=== PATIENT | male | born 1965 | race Caucasian/White ===

== ENCOUNTER → 2019-07-28 | Day surgery (SDC) | payer BC ==
[~2019-07-28] VITALS: Ht 190.5 cm; Wt 106.6 kg
[2019-07-28] VITALS (9 sets, daily range): BP systolic 109–137; BP diastolic 71–94
[~2019-07-28] MED LIST: AVODART0.5 MG ORAL; COREG6.25 MG ORAL; FLOMAX0.4 MG ORAL; LOSARTAN POTASS50 MG ORAL; LR 1000ml 1,000 ML IVLG SCH; LR 1000ml ONE; Lidocaine 1% MPF 10mg/ml 5ml ONE; Propofol 200mg/20ml IV ONE
--- NOTE | 2019-07-28 09:19 | Pre-Procedure Note/Attestation ---
Pre-Procedure Note/Attestation Complete Prior to Procedure Planned Procedure: not applicable Procedure Narrative: colonoscopy Indications for Procedure Pre-Operative Diagnosis: screening Attestation I attest that I discussed the nature of the procedure; its benefits; risks and complications; and alternatives (and the risks and benefits of such alternatives ), prior to the procedure, with the patient (or the patient's legal guest relations representative). I attest that, if there was a reasonable possibility of needing a blood transfusion, the patient (or the patient's legal guest relations representative) was given the [facility] Health Services standardized written summary, pursuant to the Raul [place] Blood Safety Act ([place] Health and Safety Code # 1645, as amended). I attest that I re-evaluated the patient just prior to the surgery and that there has been no change in the patient's H&P, except as documented below: Charly Dinero MD Jul 28, 2019 09:19
--- NOTE | 2019-07-28 09:20 | Short Stay Surgery H&P ---
History of Present Illness History of Present Illness Chief Complaint screening colon HPI Russ Walton is a 53 year old male who was admitted on for Colon Screening Patient History Allergies: Coded Allergies: No Known Allergies (Unverified , 07/28/19) PAST MEDICAL HISTORY: (1) HTN (hypertension) (2) BPH (benign prostatic hyperplasia) Medication History Scheduled Carvedilol (Coreg), 6.25 MG ORAL DAILY, (Reported) Dutasteride (Avodart), 0.5 MG ORAL DAILY, (Reported) Losartan Potassium* (Losartan Potassium*), 100 MG ORAL DAILY, (Reported) Tamsulosin HCl (Flomax), 0.4 MG ORAL DAILY, (Reported) Review of Systems Cardiovascular: Reports: no symptoms Respiratory: Reports: no symptoms Skeletal: Reports: no symptoms Gastrointestinal: Reports: no symptoms Genitourinary: Reports: no symptoms Neurologic: Reports: no symptoms Endocrine: Reports: no symptoms Hematologic: Reports: no symptoms Physical Exam Vital Signs Last Vital Signs Date Time Temp Pulse Resp B/P (MAP) Pulse Ox O2 Delivery O2 Flow Rate FiO2 07/28/19 07:48 Room Air 07/28/19 07:36 97.5 72 18 137/75 95 Skin: normal HENT: normal Heart: normal Lungs: normal Abdomen: normal Extremities: normal Plan Plan of Care colonoscopy Attestation Are the patient's medical conditions optimized for surgery? Attestation Response: yes Charly Dinero MD Jul 28, 2019 09:20
--- NOTE | 2019-07-28 09:40 | Endoscopy Procedure Note ---
Endoscopy Procedure Note General Indication for Procedure: screening Procedures Performed: colonoscopy Operative Findings/Diagnosis: hemorrhoids Specimen: none Pt Tolerated Procedure Well: Yes Estimated Blood Loss: none Anesthesia Anesthesiologist: tawnya Anesthesia: MAC Inserted Devices Implant(s) used?: No Quality Quality of Bowel Preparation: Good Did scope reach the cecum?: Yes Was there any complications?: No GI Core Measures 50 yrs or older w/o bx or poly: No 10yrs. F/U recommended: Yes If not recommended, why?: Above average risk 18 years or older w/prev. colo: No Charly Dinero MD Jul 28, 2019 09:40
--- NOTE | 2019-07-28 09:52 | Immediate Post-Op Evaluation ---
Immediate Post-Op Evalulation Immediate Post-Op Evalulation Procedure: Colonoscopy Date of Evaluation: Jul 28, 2019 Time of Evaluation: 09:52 IV Fluids: 600 Blood Pressure Systolic: 113 Blood Pressure Diastolic: 71 Pulse Rate: 70 Respiratory Rate: 14 O2 Sat by Pulse Oximetry: 98 Temperature (Fahrenheit): 97.5 Pain Score (1-10): 0 Nausea: No Vomiting: No Patient Status: awake, reacts, patent Hydration Status: adequate Drug: declined Lori Willis CRNA Jul 28, 2019 09:52
--- NOTE | 2019-07-28 09:53 | Anethesia Preoperative Eval ---
Anesthesia Pre-op PMH/ROS General Date of Evaluation: Jul 28, 2019 Time of Evaluation: 09:00 Anesthesiologist: arthur ASA Score: ASA 2 Mallampati Score Class I : Soft palate, uvula, fauces, pillars visible Class II: Soft palate, uvula, fauces visible Class III: Soft palate, base of uvula visible Class IV: Only hard plate visible Mallampati Classification: Class II Surgeon: shellie Diagnosis: screening Surgical Procedure: Colonoscopy Anesthesia History: none Family History: no anesthesia problems Allergies: Coded Allergies: No Known Allergies (Unverified , 07/28/19) Medications: see eMAR Patient NPO?: Yes NPO Date: Jul 28, 2019 NPO Time: 00:01 Past Medical History Cardiovascular: Reports: HTN Pulmonary: Denies: asthma, COPD, KATIE, other Gastrointestinal/Genitourinary: Denies: GERD, CRI, ESRD, other Neurologic/Psychiatric: Denies: dementia, CVA, depression/anxiety, TIA, other Endocrine: Denies: DM, hypothyroidism, steroids, other HEENT: Denies: cataract (L), cataract (R), glaucoma, [place] (L), [place] (R), other Hematology/Immune: Denies: anemia, DVT, bleeding disorder, other PSxH Narrative: denies Anesthesia Pre-op Phys. Exam Physician Exam Last Vital Signs Date Time Temp Pulse Resp B/P (MAP) Pulse Ox O2 Delivery O2 Flow Rate FiO2 07/28/19 07:48 Room Air 07/28/19 07:36 97.5 72 18 137/75 95 Constitutional: NAD Neurologic: CN 2-12 intact Cardiovascular: RRR Respiratory: CTA Gastrointestinal: S/NT/ND Airway Exam Mallampati Classification 2 Mallampati Score: Class II MO: full ROM: full Dentures: no upper, no lower Anesthesia Pre-op A/P Studies Pre-op Studies: EKG - SR Risk Assessment & Plan Plan: mac Pre-Antibiotics Drug: Lori Muniz CRNA Jul 28, 2019 09:53
--- NOTE | 2019-07-28 10:47 | 48 Hour Post Anesthesia Eval ---
Post Anesthesia Evaluation Procedure: Colonoscopy Date of Evaluation: Jul 28, 2019 Time of Evaluation: 10:47 Blood Pressure Systolic: 132 0: 94 Pulse Rate: 57 Respiratory Rate: 14 O2 Sat by Pulse Oximetry: 98 Airway: patent Nausea: No Vomiting: No Hydration Status: adequate Cardiopulmonary Status: stable Mental Status/LOC: patient returned to baseline Post-Anesthesia Complications: none Follow-up care needed: N/A Lori Willis CRNA Jul 28, 2019 10:47
--- NOTE | 2019-07-28 14:45 | Procedure Note ---
DATE OF PROCEDURE: 07/28/2019 SURGEON: Charly Dinero M.D. PROCEDURE: Colonoscopy. ANESTHESIA: Per RADIOCHEMICAL TECHNICIAN, Lori Tarrillion. INSTRUMENT: Olympus adult flexible colonoscope. INDICATION: Colonoscopy. REASON FOR PROCEDURE: The procedure, risks, benefits, and possible consequences, including hemorrhage, aspiration, perforation and infection, and alternative treatments, were explained to the patient/legal guardian by Dr. Charly Dinero and the patient/legal guardian understood and accepted these risks. PROCEDURE IN DETAIL: After informed consent was obtained and the patient was adequately sedated, first rectal exam was performed, which was normal. Then, the scope was advanced from the rectum into the cecum documented by appendix orifice, ileocecal valve, and right upper quadrant palpation. Quality of prep was very good. The patient had normal colonoscopy examination except for internal hemorrhoids seen on retroflexion. No obvious mass, polyp, diverticulosis, or any pathology was seen. SUMMARY OF FINDINGS: Normal colonoscopy examination. Some internal hemorrhoids. RECOMMENDATIONS: Treat for hemorrhoids if become symptomatic. Otherwise repeat colonoscopy in 10 years. Charly Dinero M.D. DR: KAYCEE JOB#: [id number] CC:
--- NOTE | 2019-07-28 14:56 | Cardiology Report ---
APPROVED REPORT EKG Measurement Heart [id number] Normal sinus rhythm Normal ECG
== END | disposition home or self-care (01) ==
LOC: GAS 07:08
DX: Z12.11 Encounter for screening for malignant neoplasm of colon (principal); K64.8 Other hemorrhoids
CPT/HCPCS: 93005; G0121; J2704; J7120

== ENCOUNTER 2020-08-30 07:00 | Day surgery (SDC) | payer BC ==
[~2020-08-30] VITALS: Ht 190.5 cm; Wt 113.4 kg
[2020-08-30] VITALS (7 sets, daily range): BP systolic 133–157; BP diastolic 73–93
[~2020-08-30 07:00] MED LIST changes: -LR 1000ml 1,000 ML IVLG SCH; -LR 1000ml ONE; -Lidocaine 1% MPF 10mg/ml 5ml ONE; -Propofol 200mg/20ml IV ONE
[2020-08-30] MEDS ORDERED: LR 1000ml 1,000 ML IVLG SCH ×2 (08:00→09:00)
--- NOTE | 2020-08-30 08:27 | Endoscopy Procedure Note ---
Endoscopy Procedure Note General Indication for Procedure: rectal bleed Procedures Performed: flexible sigmoidoscopy Operative Findings/Diagnosis: hemorrhoids Specimen: none Pt Tolerated Procedure Well: Yes Estimated Blood Loss: none Anesthesia Anesthesiologist: pam Anesthesia: MAC Inserted Devices Implant(s) used?: No GI Core Measures 50 yrs or older w/o bx or poly: Not Applicable 10yrs. F/U recommended: Not Applicable Charly Dinero MD Aug 30, 2020 08:27
--- NOTE | 2020-08-30 08:28 | Short Stay Surgery H&P ---
History of Present Illness History of Present Illness Chief Complaint rectal bleed HPI Russ Walton is a 54 year old male who was admitted on for Hx Of Colon Polyps,Hemorrhoid Patient History Allergies: Coded Allergies: No Known Allergies (Unverified , 08/23/20) PAST MEDICAL HISTORY: (1) BPH (benign prostatic hyperplasia) (2) HTN (hypertension) Medication History Scheduled Carvedilol (Coreg), 6.25 MG ORAL DAILY, (Reported) Dutasteride (Avodart), 0.5 MG ORAL DAILY, (Reported) Losartan Potassium* (Losartan Potassium*), 100 MG ORAL DAILY, (Reported) Tamsulosin HCl (Flomax), 0.4 MG ORAL DAILY, (Reported) Review of Systems Cardiovascular: Reports: no symptoms Respiratory: Reports: no symptoms Skeletal: Reports: no symptoms Gastrointestinal: Reports: no symptoms Genitourinary: Reports: no symptoms Neurologic: Reports: no symptoms Endocrine: Reports: no symptoms Hematologic: Reports: no symptoms Physical Exam Vital Signs Last Vital Signs Date Time Temp Pulse Resp B/P (MAP) Pulse Ox O2 Delivery O2 Flow Rate FiO2 08/30/20 07:43 Room Air 08/30/20 07:33 97.5 80 18 133/73 97 Skin: normal HENT: normal Heart: normal Lungs: normal Abdomen: normal Extremities: normal Plan Plan of Care flex sig Attestation Are the patient's medical conditions optimized for surgery? Attestation Response: yes Charly Dinero MD Aug 30, 2020 08:28
--- NOTE | 2020-08-30 08:58 | Anethesia Preoperative Eval ---
Anesthesia Pre-op PMH/ROS General Date of Evaluation: Aug 30, 2020 Time of Evaluation: 08:38 Anesthesiologist: sayra ASA Score: ASA 3 Mallampati Score Class I : Soft palate, uvula, fauces, pillars visible Class II: Soft palate, uvula, fauces visible Class III: Soft palate, base of uvula visible Class IV: Only hard plate visible Mallampati Classification: Class II Surgeon: katerina Diagnosis: hx/o colon polyps, hemorrhoids Surgical Procedure: flexible sigmoidoscopy w/ banding Anesthesia History: none Social History: smoking - nonsmoker Family History: no anesthesia problems Allergies: Coded Allergies: No Known Allergies (Unverified , 08/23/20) Medications: see eMAR Patient NPO?: Yes Past Medical History Cardiovascular: Reports: HTN Gastrointestinal/Genitourinary: Reports: other - colon polyps, hemorrhoids, bph Anesthesia Pre-op Phys. Exam Physician Exam Last Vital Signs Date Time Temp Pulse Resp B/P (MAP) Pulse Ox O2 Delivery O2 Flow Rate FiO2 08/30/20 07:43 Room Air 08/30/20 07:33 97.5 80 18 133/73 97 Constitutional: NAD Neurologic: CN 2-12 intact Cardiovascular: RRR Respiratory: CTA Gastrointestinal: S/NT/ND Airway Exam Mallampati Score: Class II MO: limited Neck: flexible TMD: 2fb ROM: limited Anesthesia Pre-op A/P Risk Assessment & Plan Assessment: asa3 Plan: mac Status Change Before Surgery: No Pre-Antibiotics Drug: Sonali Beauchamp MD Aug 30, 2020 08:57
[2020-08-30] MEDS ORDERED: Atropine Inj 1mg/10ml Syr IVP PRN (09:00)
[2020-08-30] MEDS ORDERED: Midazolam 2mg/2ml Inj IVP PRN (09:00)
[2020-08-30] MEDS ORDERED: fentaNYL 100 mcg/2 mL IV PRN (09:00)
[2020-08-30] MEDS ORDERED: DiphenhydrAMINE 50mg/ml Inj IVP PRN (09:00)
--- NOTE | 2020-08-30 09:06 | Endoscopy Procedure Note ---
Endoscopy Procedure Note General Indication for Procedure: rectal bleed Procedures Performed: flexible sigmoidoscopy Operative Findings/Diagnosis: same Specimen: none Pt Tolerated Procedure Well: Yes Estimated Blood Loss: none Anesthesia Anesthesiologist: pam Anesthesia: MAC Inserted Devices Implant(s) used?: No GI Core Measures 50 yrs or older w/o bx or poly: Not Applicable 10yrs. F/U recommended: Not Applicable Charly Dinero MD Aug 30, 2020 09:06
--- NOTE | 2020-08-30 09:27 | Immediate Post-Op Evaluation ---
Immediate Post-Op Evalulation Immediate Post-Op Evalulation Procedure: flexible sigmoidoscopy w/ banding Date of Evaluation: Aug 30, 2020 Time of Evaluation: 09:24 IV Fluids: 850ml lr Blood Products: none Estimated Blood Loss: negligible Blood Pressure Systolic: 148 Blood Pressure Diastolic: 91 Pulse Rate: 69 Respiratory Rate: 18 O2 Sat by Pulse Oximetry: 100 Temperature (Fahrenheit): 97.2 Pain Score (1-10): 0 Nausea: No Vomiting: No Complications none Patient Status: awake, reacts, patent Hydration Status: adequate Drug: Sonali Beauchamp MD Aug 30, 2020 09:27
--- NOTE | 2020-08-30 09:28 | 48 Hour Post Anesthesia Eval ---
Post Anesthesia Evaluation Procedure: flexible sigmoidoscopy w/ banding Date of Evaluation: Aug 30, 2020 Time of Evaluation: 09:28 Blood Pressure Systolic: 144 0: 88 Pulse Rate: 67 Respiratory Rate: 18 Temperature (Fahrenheit): 97.2 O2 Sat by Pulse Oximetry: 100 Airway: patent Nausea: No Vomiting: No Pain Intensity: 0 Hydration Status: adequate Cardiopulmonary Status: stable Mental Status/LOC: patient returned to baseline Post-Anesthesia Complications: none Follow-up care needed: N/A Sonali Garcia MD Aug 30, 2020 09:28
--- NOTE | 2020-08-30 15:29 | Procedure Note ---
DATE OF PROCEDURE: 08/30/2020 SURGEON: Charly Dinero MD. PROCEDURE: Flexible endoscopy with banding of the hemorrhoids. ANESTHESIA: Per Dr. Stack. INSTRUMENT: Olympus adult flexible upper endoscope. INDICATION: Rectal bleeding. REASON FOR PROCEDURE: The procedure, risks, benefits, and possible consequences, including hemorrhage, aspiration, perforation and infection, and alternative treatments, were explained to the patient/legal guardian by Dr. Charly Dinero and the patient/legal guardian understood and accepted these risks. PROCEDURE IN DETAIL: After informed consent was obtained and the patient was adequately sedated, Olympus upper endoscope was performed show positive for large external and internal hemorrhoids. External hemorrhoids did not look any thrombosed or anything like that. Then, the scope was advanced from rectum into the sigmoid colon. Quality of prep was fair. The patient had large internal hemorrhoids, at least I would say four or five of them. At this time, the upper endoscope was retrieved and banding device was placed. The scope was reintroduced into the rectum and total of three bands were placed on the hemorrhoids. The patient tolerated the procedure very well without any complications. SUMMARY OF FINDINGS: 1. Internal and external hemorrhoids. 2. Status post banding x3 of internal hemorrhoids. RECOMMENDATIONS: 1. Discharge for today and follow in the office. 2. Pain control. 3. Continue on his suppositories, stool softeners. 4. We will follow. Charly Dinero M.D. DR: ADAM JOB#: [id number] CC:
== END 2020-08-30 10:15 | disposition home or self-care (01) ==
LOC: GAS 07:00
DX: K64.8 Other hemorrhoids (principal); K64.4 Residual hemorrhoidal skin tags; I10 Essential (primary) hypertension; Z79.899 Other long term (current) drug therapy; Z86.010 Personal history of colon polyps
CPT/HCPCS: 94003; 94150

== ENCOUNTER → 2020-09-29 | Day surgery (SDC) | payer BC ==
[~2020-09-29] VITALS: Ht 190.5 cm; Wt 110.7 kg
[2020-09-29] VITALS (8 sets, daily range): BP systolic 118–142; BP diastolic 68–87
[~2020-09-29] MED LIST changes: +DiphenhydrAMINE 50mg/ml Inj IVP PRN; +FISH OIL CAP1000 MG ORAL; +Ketorolac 30mg Inj IV PRN; +LR 1000ml 1,000 ML IVLG SCH; +Meperidine 25mg/1ml Inj (FOR RIGORS ONLY) IV PRN; +Midazolam 2mg/2ml Inj ONE; +fentaNYL 100 mcg/2 mL IV ONE
--- NOTE | 2020-09-29 10:47 | Anethesia Preoperative Eval ---
Anesthesia Pre-op PMH/ROS General Date of Evaluation: Sep 29, 2020 Time of Evaluation: 10:44 Anesthesiologist: Kai ASA Score: ASA 2 Mallampati Score Class I : Soft palate, uvula, fauces, pillars visible Class II: Soft palate, uvula, fauces visible Class III: Soft palate, base of uvula visible Class IV: Only hard plate visible Mallampati Classification: Class II Surgeon: Bar Diagnosis: Hemorrhoids Surgical Procedure: Colonoscopy with banding Anesthesia History: none Family History: no anesthesia problems Allergies: Coded Allergies: No Known Allergies (Unverified , 08/23/20) Medications: see eMAR Patient NPO?: Yes Past Medical History Cardiovascular: Reports: HTN - stable on meds; Denies: CAD, [place], valve dz, arrhythmia, other Pulmonary: Denies: asthma, COPD, KATIE, other Gastrointestinal/Genitourinary: Reports: GERD, other - recurrent hemorrhoids; Denies: CRI, ESRD Neurologic/Psychiatric: Denies: dementia, CVA, depression/anxiety, TIA, other Endocrine: Denies: DM, hypothyroidism, steroids, other HEENT: Denies: cataract (L), cataract (R), glaucoma, [place] (L), [place] (R), other Hematology/Immune: Denies: anemia, DVT, bleeding disorder, other Musculoskeletal/Integumentary: Denies: OA, RA, DJD, DDD, edema, other Other: other - overweight PMH Narrative: as above PSxH Narrative: see H&P Anesthesia Pre-op Phys. Exam Physician Exam Last Vital Signs Date Time Temp Pulse Resp B/P (MAP) Pulse Ox O2 Delivery O2 Flow Rate FiO2 09/29/20 10:14 98.0 80 18 124/68 96 Room Air Constitutional: NAD Neurologic: CN 2-12 intact Cardiovascular: RRR, no M/R/G Respiratory: CTA Airway Exam Mallampati Score: Class II MO: full Neck: flexible ROM: full Teeth: intact Dentures: no upper, no lower Anesthesia Pre-op A/P Risk Assessment & Plan Assessment: ASA 2 Plan: Hany Andre MD Sep 29, 2020 10:47
--- NOTE | 2020-09-29 10:59 | Pre-Procedure Note/Attestation ---
Pre-Procedure Note/Attestation Complete Prior to Procedure Planned Procedure: not applicable Procedure Narrative: flex sig Indications for Procedure Pre-Operative Diagnosis: hemorrhoids Attestation I attest that I discussed the nature of the procedure; its benefits; risks and complications; and alternatives (and the risks and benefits of such alternatives), prior to the procedure, with the patient (or the patient's legal sales representative cash registers). I attest that, if there was a reasonable possibility of needing a blood flores sfusion, the patient (or the patient's legal sales representative cash registers) was given the [facility] standardized written summary, pursuant to the Raul [place] Blood Safety Act ([place] Health and Safety Code # 1645, as amended). I attest that I re-evaluated the patient just prior to the surgery and that there has been no change in the patient's H&P, except as documented below: Charly Dinero MD Sep 29, 2020 10:59
--- NOTE | 2020-09-29 11:00 | Short Stay Surgery H&P ---
History of Present Illness History of Present Illness Chief Complaint rectal bleed HPI Russ Walton is a 54 year old male who was admitted on for Polyps,Hemorrhoids,Rectal Bleed Patient History Allergies: Coded Allergies: No Known Allergies (Unverified , 08/23/20) PAST MEDICAL HISTORY: (1) BPH (benign prostatic hyperplasia) (2) HTN (hypertension) Medication History Scheduled Carvedilol (Coreg), 6.25 MG ORAL DAILY, (Reported) Dutasteride (Avodart), 0.5 MG ORAL DAILY, (Reported) Fish Oil (Fish Oil 1,000 mg Capsule), 1,000 MG ORAL DAILY, (Reported) Losartan Potassium* (Losartan Potassium*), 100 MG ORAL DAILY, (Reported) Tamsulosin HCl (Flomax), 0.4 MG ORAL DAILY, (Reported) Review of Systems Cardiovascular: Reports: no symptoms Respiratory: Reports: no symptoms Skeletal: Reports: no symptoms Gastrointestinal: Reports: see HPI Genitourinary: Reports: no symptoms Neurologic: Reports: no symptoms Endocrine: Reports: no symptoms Hematologic: Reports: no symptoms Physical Exam Vital Signs Last Vital Signs Date Time Temp Pulse Resp B/P (MAP) Pulse Ox O2 Delivery O2 Flow Rate FiO2 09/29/20 10:14 98.0 80 18 124/68 96 Room Air Skin: normal HENT: normal Heart: normal Lungs: normal Abdomen: normal Extremities: normal Plan Plan of Care flex sig Attestation Are the patient's medical conditions optimized for surgery? Attestation Response: yes Charly Dinero MD Sep 29, 2020 11:00
--- NOTE | 2020-09-29 11:13 | Endoscopy Procedure Note ---
Endoscopy Procedure Note General Indication for Procedure: rectal bleed Procedures Performed: flexible sigmoidoscopy Operative Findings/Diagnosis: s/p banding Specimen: none Pt Tolerated Procedure Well: Yes Estimated Blood Loss: none Anesthesia Anesthesiologist: imguel Anesthesia: MAC Inserted Devices Implant(s) used?: No GI Core Measures 50 yrs or older w/o bx or poly: Not Applicable 10yrs. F/U recommended: Not Applicable Charly Dinero MD Sep 29, 2020 11:13
--- NOTE | 2020-09-29 11:20 | Immediate Post-Op Evaluation ---
Immediate Post-Op Evalulation Immediate Post-Op Evalulation Procedure: Sigmoidoscopy with hemprrhoids banding Date of Evaluation: Sep 29, 2020 Time of Evaluation: 11:19 IV Fluids: 400 Blood Products: none Estimated Blood Loss: min Urinary Output: none Blood Pressure Systolic: 146 Blood Pressure Diastolic: 82 Pulse Rate: 78 Respiratory Rate: 18 O2 Sat by Pulse Oximetry: 99 Temperature (Fahrenheit): 97.6 Pain Score (1-10): 1 Nausea: No Vomiting: No Complications none Patient Status: awake, patent, none Hydration Status: adequate Hany Quinn MD Sep 29, 2020 11:20
--- NOTE | 2020-09-29 12:15 | 48 Hour Post Anesthesia Eval ---
Post Anesthesia Evaluation Procedure: Sigmoidoscopy with hemorrhoids banding Date of Evaluation: Sep 29, 2020 Time of Evaluation: 12:14 Blood Pressure Systolic: 142 0: 68 Pulse Rate: 68 Respiratory Rate: 20 Temperature (Fahrenheit): 97.6 O2 Sat by Pulse Oximetry: 98 Airway: patent Nausea: No Vomiting: No Pain Intensity: 2 Hydration Status: adequate Cardiopulmonary Status: stable Mental Status/LOC: patient returned to baseline Follow-up Care/Observations: n/a Post-Anesthesia Complications: none Follow-up care needed: ready to discharge Hany Quinn MD Sep 29, 2020 12:15
--- NOTE | 2020-10-01 23:44 | Procedure Note ---
DATE OF PROCEDURE: 09/29/2020 SURGEON: Charly Dinero MD PROCEDURE: Flexible endoscopy with banding of the hemorrhoids x3. ANESTHESIA: Per Dr. Quinn. INSTRUMENT: Olympus flexible upper endoscope. REASON FOR PROCEDURE: The procedure, risks, benefits, and possible consequences, including hemorrhage, aspiration, perforation and infection, and alternative treatments, were explained to the patient/legal guardian by Dr. Charly Dinero and the patient/legal guardian understood and accepted these risks. INDICATION: Hemorrhoidal bleeding. DESCRIPTION OF PROCEDURE: After informed consent was obtained and patient was adequately sedated, Olympus upper endoscope was advanced into the rectum into the sigmoid colon. Retroflexion was performed, which showed evidence of few large very large internal hemorrhoids. At this time, the scope was retrieved. Banding device was placed. Total of 3 bands were placed on the largest hemorrhoids. Patient tolerated the procedure without any complication. SUMMARY OF FINDINGS: 1. Large internal hemorrhoids, status post banding. 2. Patient also has external hemorrhoids. RECOMMENDATIONS: Patient to be on a stool softener. Pain control with Tylenol. Repeat banding if needed. Charly Dinero M.D. DR: SIMA JOB#: [id number] CC:
== END | disposition home or self-care (01) ==
LOC: GAS 09:20
DX: K64.8 Other hemorrhoids (principal); K64.4 Residual hemorrhoidal skin tags; I10 Essential (primary) hypertension; Z79.899 Other long term (current) drug therapy; K21.9 Gastro-esophageal reflux disease without esophagitis; E66.3 Overweight; Z68.30 Body mass index [BMI] 30.0-30.9, adult
CPT/HCPCS: 45330; 46221; 94003; J2250; J3010; 94150